=== PATIENT | male | born 1940 | race Asian ===

== ENCOUNTER 2018-12-26 16:12 | Emergency (ER) | payer OTHER ==
[~2018-12-26] VITALS: Ht 165.1 cm; Wt 53.5 kg
[2018-12-26 16:31] VITALS: BP_SYST 102
[2018-12-26] MEDS ORDERED: NACL 0.9% 1,000 ML IV ONE (17:15)
[2018-12-26 17:22] LABS: BASOPHILS % (AUTO) 0.8 % (0.0-2.0); EOSINOPHILS % (AUTO) 0.8 % (0.0-4.0); HEMATOCRIT 35.4 % (36-54); HEMOGLOBIN 11.7 g/dL (14.0-18.0); LYMPHOCYTES # (AUTO) 0.9 K/uL (1.0-5.5); LYMPHOCYTES % (AUTO) 17.3 % (20.5-51.5); MEAN CORPUSCULAR HEMOGLOBIN 29 pg (27-31); MEAN CORPUSCULAR HGB CONC 33 % (32-36); MEAN CORPUSCULAR VOLUME 88 fL (79.0-98.0); MONOCYTES # (AUTO) 0.7 K/uL (0.0-1.0); MONOCYTES % (AUTO) 12.4 % (1.7-9.3); NEUTROPHILS # (AUTO) 3.7 K/uL (1.8-7.7); NEUTROPHILS % (AUTO) 68.7 % (40.0-70.0); PLATELET COUNT (AUTO) 265 K/uL (130-430); RED BLOOD CELL COUNT(AUTO) 4.03 MIL/uL (4.2-6.2); RED CELL DISTRIBUTION WIDTH 19.7 % (9.0-15.0); WHITE BLOOD COUNT (AUTO) 5.4 K/uL (4.8-10.8)
[2018-12-26 18:26] LABS: ANION GAP 13 (5-15); CALCIUM 10.1 mg/dL (8.4-11.0); CHLORIDE 103 mmol/L (98-107); CREATININE 1.29 mg/dL (0.55-1.30); GLUCOSE 106 mg/dL (70-99); POTASSIUM 4.7 mmol/L (3.5-5.1); SODIUM SERUM 137 mmol/L (136-145); UREA NITROGEN, BLOOD 24 mg/dL (8-21)
[2018-12-26 18:28] LABS: ALANINE AMINOTRANSFERASE 26 U/L (12-78); ALBUMIN 2.7 g/dL (3.4-4.8); ASPARTATE AMINOTRANSFERASE 73 U/L (10-37); LIPASE 90 U/L (73-393); TOTAL BILIRUBIN 0.9 mg/dL (0.0-1.0)
[2018-12-26 18:39] LABS: BILIRUBIN,URINE NEGATIVE (NEGATIVE); BLOOD, URINE NEGATIVE (NEGATIVE); CLARITY/URINE HAZY (CLEAR); COLOR,URINE YELLOW (YELLOW); GLUCOSE,URINE NEGATIVE (NEGATIVE); KETONES,URINE TRACE (NEGATIVE); LEUKOCYTE ESTERASE ,URINE NEGATIVE (NEGATIVE); NITRITE, URINE NEGATIVE (NEGATIVE); PROTEIN URINE TRACE (NEGATIVE); UROBILINOGEN,URINE 0.2 (0.2-1.0)
[2018-12-26 19:04] VITALS: BP_SYST 105
[2018-12-26 19:14] LABS: BACTERIA,URINE FEW /HPF (None Seen); FINE GRANULAR CASTS,URINE 0-10 /LPF (None Seen); RBC,URINE 0-3 /HPF (0-3)
[2018-12-26 19:15] LABS: COARSE GRANULAR CASTS,URINE 30-50 /LPF (None Seen); MUCUS,URINE 2+ /LPF (None Seen); OTHER CASTS, URINE WBC CASTS 1+ /LPF (None Seen)
== END 2018-12-26 19:02 | disposition home or self-care (01) ==
LOC: SED 16:12
DX: K21.9 Gastro-esophageal reflux disease without esophagitis (principal)
CPT/HCPCS: 36415; 80053; 81000; 83690; 85025; 99283; J7030